=== PATIENT | female | born 2000 | race Caucasian/White ===

== ENCOUNTER 2020-12-15 16:33 | Emergency (ER) | payer OTHER ==
[2020-12-15 16:41] VITALS: BP 135/80; PULSE 71; RESP 18; TEMP 97.8
--- NOTE | 2020-12-15 17:08 | ED ---
Anxiety HPI - General Chief Complaint: Anxiety Stated Complaint: Panic Attacks Time Seen by Provider: 12/15/20 16:46 Source: patient Mode of arrival: ambulatory - History of Present Illness Initial Comments: Patient is a 20-year-old female presenting to the emergency Department with complaints of increased anxiety over the past week. She states she's had a history of anxiety over the past couple years but it's been getting worse over the past month. She states she's been getting almost daily panic attacks, not sleeping well, losing weight and not eating well. She states she just recently get set up with a primary care physician and is seeing a GI doctor next week in regards to her abdominal pain. She denies any suicidal or homicidal thoughts. She states she is starting a new job at Thursday and was really like to get some sleep. She states she has a follow-up appointment with her primary care physician in 2 weeks and they will address the anxiety. She also made an appointment with a counselor to address her anxiety. She currently takes Pepcid and Zofran occasionally for nausea. She denies any smoking, no alcohol or drug use. She denies being . She is not sexually active. She denies any chest pain or shortness of breath today. She denies any recent fevers or chills. She has no further complaints. Signs are stable upon arrival. - Related Data Home Medications: Previous Rx's Medication Instructions Recorded ALPRAZolam [Xanax] 0.25 mg PO BID PRN #12 tab 12/15/20 Allergies/Adverse Reactions: Allergies Allergy/AdvReac Type Severity Reaction Status Date / Time cefazolin Allergy Rash/Hives Verified 12/15/20 16:42 sulfamethoxazole Allergy Rash/Hives Verified 12/15/20 16:42 [From Bactrim] trimethoprim [From Bactrim] Allergy Rash/Hives Verified 12/15/20 16:42 hydromorphone [From Dilaudid] AdvReac Nausea & Verified 12/15/20 16:42 Vomiting Review of Systems ROS Statement: Those systems with pertinent positive or pertinent negative responses have been documented in the HPI. ROS Other: All systems not noted in ROS Statement are negative. Past Medical History Past Medical History: No Reported History History of Any Multi-Drug Resistant Organisms: None Reported Additional Past Surgical History / Comment(s): skin grafts lower legs, Past Psychological History: No Psychological Hx Reported Smoking Status: Current every day smoker Past Alcohol Use History: Rare Past Drug Use History: Marijuana General Exam - General Exam Comments Initial Comments: GENERAL: Patient is well-developed and well-nourished. Patient is nontoxic and in no acute distress. HEAD: Atraumatic, normocephalic. EYES: Pupils equal round and reactive to light, extraocular movements intact, sclera anicteric, conjunctiva are normal. Eyelids were unremarkable. ENT: Nares patent, oropharynx clear without exudates. Moist mucous membranes. NECK: Normal range of motion, supple without lymphadenopathy or JVD. LUNGS: Unlabored respirations. Breath sounds clear to auscultation bilaterally and equal. No wheezes rales or rhonchi. HEART: Regular rate and rhythm without murmurs, rubs or gallops. ABDOMEN: Soft, nontender, normoactive bowel sounds. No guarding, no rebound. No masses appreciated. : Deferred MUSCULOSKELETAL: Normal extremities with adequate strength and normal range of motion, no pitting or edema. No clubbing or cyanosis. NEUROLOGICAL: Patient is alert and oriented x 3. Motor and sensory are also intact. Cranial nerves II through XII grossly intact. Symmetrical smile. Normal speech, normal gait. PSYCH: Normal mood, normal affect. SKIN: Warm, Dry, normal turgor, no rashes or lesions noted. Limitations: no limitations Course Vital Signs 12/15/20 16:37 Temperature 97.8 F Pulse Rate 71 Respiratory 18 Rate Blood Pressure 135/80 O2 Sat by Pulse 98 Oximetry Medical Decision Making - Medical Decision Making Patient is a 20-year-old female presenting with increasing anxiety over the past couple weeks. Her vital signs are stable, she has no chest pain or shortness of breath today. She recently was set up with a new primary care physician, she has an appointment with a counselor and a GI specialist this next few weeks. She starts a new job on Thursday not been sleeping. We discussed taking a low- dose Xanax at nighttime to help with her sleep. We'll give her a few tablets of this to go home with. She will follow-up with her primary care physician for further treatment of her anxiety. She is in agreement with this plan of care. Her grandmother is with her today and will drive her home. She agrees not to mix any other medications. She is stable for discharge. Return parameters were discussed with her and she verbalized understanding. Case discussed with Dr. Holloway. Disposition Clinical Impression: Anxiety Disposition: HOME SELF-CARE Condition: Stable Instructions (If sedation given, give patient instructions): Generalized Anxiety Disorder (ED) Additional Instructions: Please return to the Emergency Department if symptoms worsen or any other concerns. May take Xanax at nighttime to help with sleep. Please follow-up with your primary care physician as well as your counselor. Prescriptions: ALPRAZolam [Xanax] 0.25 mg PO BID PRN #12 tab PRN Reason: Anxiety Is patient prescribed a controlled substance at d/c from ED?: Yes When asked, does pt state using other controlled substances?: No If prescribed controlled substance>3 days was MAPS reviewed?: Prescribed <3 Days Referrals: Sweta Murphy NPC [Primary Care Provider] - 1-2 days Time of Disposition: 17:07
== END 2020-12-15 17:20 | disposition home or self-care (01) ==
LOC: EC 16:33
DX: F41.9 Anxiety disorder, unspecified (principal); F17.200 Nicotine dependence, unspecified, uncomplicated; Z88.1 Allergy status to other antibiotic agents; Z88.5 Allergy status to narcotic agent; Z88.2 Allergy status to sulfonamides
CPT/HCPCS: 99283

== ENCOUNTER 2021-01-15 08:51 | Day surgery (SDC) | payer OTHER ==
[2021-01-14 08:27] VITALS: BMI 33.6
[2021-01-15 09:23] VITALS: TEMP 98.7
[2021-01-15] MEDS ORDERED: LIDOCAINE 1% (10MG/ML) FOR IV START INTRADERMA ONE (09:34)
[2021-01-15] MEDS: LACTATED RINGERS 1,000 ML IV SCH ×2 (09:35→09:42)
[2021-01-15] MEDS ORDERED: LIDOCAINE 1% INJ 10MG/ML (20 ML MDV) ONE (09:43)
[2021-01-15] MEDS ORDERED: PROPOFOL 10 MG/ML 20 ML VIAL IV ONE (09:43)
--- NOTE | 2021-01-15 10:06 | P.PCN ---
Date of Procedure: 01/15/21 Description of Procedure: BRIEF HISTORY: Patient is a 20-year-old female presenting for esophagogastroduodenoscopy for evaluation of epigastric pain. She was seen in the GI clinic reporting symptoms of epigastric burning and pain with decreased appetite, nausea, vomiting and an episode of coffee-ground emesis. She was started on PPI therapy and reports improvement in her symptoms. PROCEDURE PERFORMED: Esophagogastroduodenoscopy with biopsy. PREOPERATIVE DIAGNOSIS: Epigastric abdominal pain, GERD, coffee-ground emesis. ESTIMATED BLOOD LOSS: Minimal. IV sedation per anesthesia. PROCEDURE: After informed consent was obtained, the patient was brought into the endoscopy unit. IV sedation was administered by Anesthesia under continuous monitoring. Initially the Olympus GIF-190 video endoscope was inserted into the mouth. Esophagus intubated without any difficulty. It was gradually advanced into the stomach and duodenum and carefully examined. The bulb and the second part of the duodenum appeared normal, with biopsies taken. The scope at this time was withdrawn to the stomach, adequately insufflated with air, and upon careful examination, mucosa of the antrum, body, cardia and the fundus appeared normal, except for mild punctate erythema in the antrum and body suggestive of mild gastritis biopsies taken. The scope was then withdrawn into the esophagus. The GE junction was located at 39 cm from the incisors, with lower esophageal biopsies. The esophagus appeared normal. There were no erosions or ulcerations seen and the patient tolerated the procedure well. IMPRESSION: 1. Mild gastritis. 2. Biopsies of the duodenum, antrum body and lower esophagus. RECOMMENDATIONS: The findings of this examination were discussed with the patient and her family. Okay to resume diet. Okay to resume medications. Continue PPI therapy. Await pathology from biopsies.
[2021-01-15 10:24] VITALS: BP 128/85; PULSE 56; RESP 16
== END 2021-01-15 10:39 | disposition home or self-care (01) ==
LOC: ORWHC2ENDO 08:51
PROVIDERS: ATTEND Internal Medicine
DX: K29.50 Unspecified chronic gastritis without bleeding (principal); K20.0 Eosinophilic esophagitis; K21.9 Gastro-esophageal reflux disease without esophagitis; Z88.6 Allergy status to analgesic agent; Z88.5 Allergy status to narcotic agent; Z88.2 Allergy status to sulfonamides; Z79.899 Other long term (current) drug therapy; Z98.890 Other specified postprocedural states; F41.9 Anxiety disorder, unspecified; F32.9 Major depressive disorder, single episode, unspecified; E66.9 Obesity, unspecified; Z68.33 Body mass index [BMI] 33.0-33.9, adult
CPT/HCPCS: 81025; 88305; 43239; J2001; J2704

== ENCOUNTER 2021-04-06 09:00 | Emergency (ER) | payer BC, OTHER ==
[2021-04-06 09:11] VITALS: RESP 18; TEMP 98.6
[2021-04-06] MEDS ORDERED: ONDANSETRON 4 MG/2 ML VIAL IVP STA (09:36)
[2021-04-06] MEDS ORDERED: SODIUM CHLORIDE 0.9% 1,000 ML IV STA ×2 (09:36→10:42)
[2021-04-06 10:06] LABS: Appearance,Urine Cloudy (Clear); Bilirubin,Urine Negative (Negative); Blood,Urine Negative (Negative); Color,Urine Yellow; Glucose,Urine (UA) Negative (Negative); Ketones,Urine 4+ (Negative); Leukocyte Esterase,Urine Small (Negative); Mucus,Urine Many /hpf; Nitrite,Urine Negative (Negative); PH, Urine 6.5 (5.0-8.0); Protein,Urine 1+ (Negative); RBC,Urine 3 /hpf (0-5); Specific Gravity,Urine 1.032 (1.001-1.035); Squamous Epithelial Cell,Urine 58 /hpf (0-4); Urobilinogen,Urine <2.0 mg/dL (<2.0); WBC,Urine 20 /hpf (0-5)
[2021-04-06 10:08] LABS: Basophils % (A) 0 %; Eosinophils # (A) 0.1 k/uL (0-0.7); Eosinophils % (A) 1 %; HGB 13.9 gm/dL (11.4-16.0); Lymphocytes # (A) 0.9 k/uL (1.0-4.8); Lymphocytes % (A) 7 %; MCHC 33.2 g/dL (31.0-37.0); MCV 90.4 fL (80.0-100.0); Mean Platelet Volume 8.2; Monocytes # (A) 0.2 k/uL (0-1.0); Monocytes % (A) 2 %; Neutrophils # (A) 11.6 k/uL (1.3-7.7); Neutrophils % (A) 90 %; Platelet Count 414 k/uL (150-450); RBC 4.64 m/uL (3.80-5.40); WBC 12.9 k/uL (3.8-10.6)
[2021-04-06 10:17] LABS: ALT 28 U/L (4-34); AST 35 U/L (14-36); African American GFR (CKD) >90 (>60 ml/min/1.73 sqM); Albumin 4.5 g/dL (3.5-5.0); Alkaline Phosphatase 76 U/L (38-126); Anion Gap 11 mmol/L; Blood Urea Nitrogen 10 mg/dL (7-17); Calcium 9.7 mg/dL (8.4-10.2); Carbon Dioxide 23 mmol/L (22-30); Chloride 106 mmol/L (98-107); Glucose 115 mg/dL (74-99); Non-African American GFR(CKD) >90 (>60 ml/min/1.73 sqM); Potassium 3.8 mmol/L (3.5-5.1); Sodium 140 mmol/L (137-145); Total Bilirubin 0.7 mg/dL (0.2-1.3); Total Protein 7.6 g/dL (6.3-8.2)
[2021-04-06 10:33] LABS: HCG,Quantitative Serum 1568.9 mIU/mL
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
[2021-04-06] MEDS ORDERED: METOCLOPRAMIDE 5 MG/ML 2 ML VIAL IVP STA (11:41)
[2021-04-06 12:30] VITALS: BP 131/83; PULSE 73
== END 2021-04-06 12:25 | disposition home or self-care (01) ==
LOC: EC 09:00
DX: O21.8 Other vomiting complicating pregnancy (principal); O99.283 Endocrine, nutritional and metabolic diseases complicating pregnancy, third trimester; E86.0 Dehydration; K21.9 Gastro-esophageal reflux disease without esophagitis; F41.9 Anxiety disorder, unspecified; F12.90 Cannabis use, unspecified, uncomplicated; Z3A.01 Less than 8 weeks gestation of pregnancy; Z88.1 Allergy status to other antibiotic agents; Z88.2 Allergy status to sulfonamides; Z88.5 Allergy status to narcotic agent; Z87.891 Personal history of nicotine dependence
CPT/HCPCS: 99284; 96374; 96375; 96361 ×2; 36415; 80053; 85025; 81001; 84702; 87086; J2765; J2405

== ENCOUNTER 2022-01-25 05:24 | Inpatient (IN) | payer BC, OTHER ==
[2022-01-25] MEDS ORDERED: LIDOCAINE 0.5% (PF) 5 MG/ML (50 ML SDV) SQ PRN (06:26)
[2022-01-25] MEDS ORDERED: CARBOPROST TROMETHAMINE 250 MCG/ML 1 ML AMP IM PRN (06:26)
[2022-01-25] MEDS ORDERED: METHYLERGONOVINE 0.2 MG/ML 1 ML AMP IM PRN (06:26)
[2022-01-25] MEDS ORDERED: TERBUTALINE 1 MG/ML VIAL SQ PRN (06:26)
[2022-01-25] MEDS ORDERED: OXYTOCIN 10 UNIT/ML 1 ML VIAL IM PRN (06:26)
[2022-01-25] MEDS ORDERED: OXYTOCIN 30 UNITS/500 ML NS 30 UNIT in SALINE 1 500ML.BAG IV SCH ×2 (06:30→15:15)
[2022-01-25 06:36] LABS: Basophils % (A) 0 %; Eosinophils # (A) 0.1 k/uL (0-0.7); Eosinophils % (A) 1 %; HGB 10.8 gm/dL (11.4-16.0); Hypochromasia Slight; Lymphocytes # (A) 2.6 k/uL (1.0-4.8); Lymphocytes % (A) 23 %; MCH 26.3 pg (25.0-35.0); MCHC 31.6 g/dL (31.0-37.0); MCV 83.3 fL (80.0-100.0); Mean Platelet Volume 8.6; Monocytes # (A) 0.7 k/uL (0-1.0); Monocytes % (A) 6 %; Neutrophils % (A) 69 %; Platelet Count 334 k/uL (150-450); RBC 4.09 m/uL (3.80-5.40); RDW 14.1 % (11.5-15.5); WBC 11.6 k/uL (3.8-10.6)
[2022-01-25] MEDS: LACTATED RINGERS 1,000 ML IV SCH ×3 (06:36→11:10)
[2022-01-25] MEDS: BUTORPHANOL 1 MG/ML 1 ML VIAL IV PRN ×2 (07:37→14:49)
[2022-01-25] MEDS ORDERED: ROPIVACAINE 5MG/ML 20ML VIAL ONE (07:49)
[2022-01-25] MEDS ORDERED: fentaNYL (PF) 50 MCG/ML 5 ML AMP ONE (07:49)
[2022-01-25] MEDS ORDERED: SODIUM CHLORIDE 0.9% 100 ML BAG ONE (07:49)
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
--- NOTE | 2022-01-25 15:09 | P.PROBDLV ---
Vaginal Delivery Note - . Vaginal Delivery Note: Normal vaginal delivery viable male infant Apgars 8 and 8 delivery time is 1438 hrs. Please see dictated H&P for intimate details of this patient's admission. In summary this is a 21-year-old 2 para 0 female estimated gestational age 39-5/7 weeks who presented to labor and delivery with spontaneous rupture membranes in early labor. Patient has Pitocin augmentation of labor. She does receive an epidural for pain control. Patient's labor progresses normally and she gets to complete. Patient pushes the head to the perineum after approximately 1 hour and 30 minutes. At this time patient is exhausted and she does have some perineal constriction therefore I infiltrate the posterior perineum 1% lidocaine and a midline episiotomy is made. We then with 1 push have controlled delivery of the infant's head over the perineum and presentation is straight occiput anterior. Mouth and nares are bulb suctioned. There is no evidence of a nuchal cord. With maternal effort she pushes and is unable to dislodge the anterior shoulder. This time the patient is encouraged to breathe and she's placed in Lázaro maneuver. At this time she pushes again after several efforts is able to dislodge the anterior shoulder and then the posterior shoulder and rest of this 's body. This is considered a mild to moderate shoulder dystocia based on the need for Lázaro maneuver and prolonged delivery of the shoulders. No other maneuvers are required for delivery. has spontaneous respiration and good cry and grossly appears normal. There are no defects. After delivery of the is laid on the mother's abdomen. The umbilical cord is doubly clamped and cut after some pulsating than the infant is taken to the warmer. Placenta is then spontaneously delivered intact. Inspection of perineum shows second-degree laceration was repaired with 3-0 Vicryl usual fashion. Excellent reapproximation is noted. All counts correct 3. This may blood loss 1 50 mL. Delivery is uncomplicated with the exception of mild to moderate shoulder dystocia.
[2022-01-25] MEDS ORDERED: SIMETHICONE 80 MG CHEWABLE PO PRN (15:11)
[2022-01-25] MEDS ORDERED: HYDROCORTISONE 2.5% RECTAL CREAM 30 GM TUBE RECTAL PRN (15:11)
[2022-01-25] MEDS ORDERED: ZOLPIDEM 5 MG TAB PO PRN (15:11)
[2022-01-25] MEDS ORDERED: LANOLIN CREAM 5 GM TUBE TOPICAL PRN (15:11)
[2022-01-25] MEDS ORDERED: bisacodyL 10 MG SUPP RECTAL PRN (15:11)
[2022-01-25] MEDS ORDERED: diphenhydrAMINE 25 MG CAP PO PRN (15:11)
[2022-01-25] MEDS ORDERED: diphenhydrAMINE 50 MG/ML 1 ML VIAL IVP PRN (15:11)
[2022-01-25] MEDS ORDERED: BENZOCAINE/MENTHOL SPRAY 1 GM/SPRAY AEROSOL TOPICAL PRN (15:11)
[2022-01-25] MEDS: IBUPROFEN 600 MG TAB PO PRN ×2 (16:06→23:46)
[2022-01-25] MEDS: ACETAMINOPHEN TAB 325 MG TAB PO PRN (19:51)
[2022-01-25] MEDS: SENNOSIDES-DOCUSATE SODIUM 1 EACH TAB PO SCH (19:51)
[2022-01-26] MEDS: ACETAMINOPHEN TAB 325 MG TAB PO PRN ×2 (04:09→19:45)
--- NOTE | 2022-01-26 06:37 | P.PNOBGVD ---
Subjective - Subjective Patient reports: Reports appetite normal, Reports voiding normally, Reports pain well controlled, Reports ambulating normally : doing well, in NICU Objective - Latest Vital Signs Latest vital signs: Vital Signs Temp Pulse Resp BP Pulse Ox 01/26/22 00:09 97.8 F 79 17 152/80 99 01/25/22 19:58 98.5 F 82 17 141/81 96 01/25/22 17:48 97.1 F L 85 18 123/63 01/25/22 16:29 98.1 F 87 17 133/64 01/25/22 15:59 76 16 127/60 01/25/22 15:44 79 16 124/66 01/25/22 15:29 93 16 123/71 01/25/22 15:14 83 16 123/69 01/25/22 14:59 98.5 F 90 16 120/83 01/25/22 06:48 97.6 F 76 16 141/90 98 Intake and Output 01/25/22 01/25/22 01/26/22 14:59 22:59 06:59 Intake Total 2816.267 567 Output Total 500 235 Balance 2316.267 332 Intake: IV 2800 400 Invasive Line 1 400 Intake, IV Titration 16.267 167 Amount Oxytocin 30 Units/500 ml 16.267 167 Ns 30 unit In Saline 1 500ml.bag @ Per Protocol IV .Q0M [facility] Rx#:[id number] Output: Urine 350 Estimated Blood Loss 150 Output, Quantitative 235 Blood Loss Other: # Voids 1 1 - Exam Lungs: bilateral: normal Chest: Normal S1, Normal S2 Extremities: Present: normal Abdomen: Present: normal appearance, soft Uterus: Present: normal, firm - Labs Labs: Abnormal Lab Results - Last 24 Hours (Table) 01/25/22 Range/Units 06:05 WBC 11.6 H (3.8-10.6) k/uL Hgb 10.8 L (11.4-16.0) gm/dL Neutrophils # 8.0 H (1.3-7.7) k/uL Assessment and Plan Assessment: day #1. Patient is resting without new complaints however she did have a couple mild blood pressure elevations. For this reason, I did draw preeclampsia blood work which is pending with her morning CBC. Patient's lochia was normal on her uterus is firm nontender. Patient's baby did go to special care for some respiratory issues and x-ray did show clavicle fracture however no other concerns. I explained to her that given all this most likely she will need to have a with her next delivery to avoid more serious injury. Plan today is to continue routine care, check CBC and preeclampsia labs, encourage ambulation. (1) 39 weeks gestation of Current Visit: Yes Status: Acute Code(s): Z3A.39 - 39 WEEKS GESTATION OF SNOMED Code(s): 05114653 (2) Spontaneous rupture of amniotic membranes Current Visit: Yes Status: Acute Code(s): KGM9620 - SNOMED Code(s): 16 [id number]
[2022-01-26 06:59] LABS: Albumin 2.7 g/dL (3.5-5.0); Bilirubin, Delta 0.1 mg/dL (0.0-0.2); Bilirubin,Unconjugated 0.2 mg/dL (0.0-1.1); Total Bilirubin 0.3 mg/dL (0.2-1.3); Total Protein 5.1 g/dL (6.3-8.2); Uric Acid 5.2 mg/dL (3.7-7.4)
[2022-01-26 08:24] LABS: Basophils # (A) 0.1 k/uL (0-0.2); Basophils % (A) 0 %; Eosinophils # (A) 0.1 k/uL (0-0.7); Eosinophils % (A) 1 %; HCT 31.8 % (34.0-46.0); Hypochromasia Moderate; Lymphocytes # (A) 3.5 k/uL (1.0-4.8); Lymphocytes % (A) 20 %; MCH 26.7 pg (25.0-35.0); MCHC 31.4 g/dL (31.0-37.0); Mean Platelet Volume 10.4; Monocytes # (A) 1.1 k/uL (0-1.0); Monocytes % (A) 6 %; Neutrophils # (A) 12.8 k/uL (1.3-7.7); Neutrophils % (A) 72 %; Platelet Count 297 k/uL (150-450); RBC 3.74 m/uL (3.80-5.40); RDW 14.3 % (11.5-15.5); WBC 17.7 k/uL (3.8-10.6)
[2022-01-26] MEDS: IBUPROFEN 600 MG TAB PO PRN ×2 (08:33→15:47)
[2022-01-26] MEDS: SENNOSIDES-DOCUSATE SODIUM 1 EACH TAB PO SCH ×2 (08:34→20:44)
[2022-01-27] MEDS: IBUPROFEN 600 MG TAB PO PRN ×3 (00:07→13:09)
[2022-01-27] MEDS: ACETAMINOPHEN TAB 325 MG TAB PO PRN ×2 (05:49→18:20)
--- NOTE | 2022-01-27 07:19 | P.DS ---
Providers Date of admission: 01/25/22 05:44 Expected date of discharge: 01/27/22 Attending physician: Radha Moncada Primary care physician: Stated None - Discharge Diagnosis(es) (1) Normal vaginal delivery Current Visit: Yes Status: Acute (2) Shoulder dystocia during labor and delivery, delivered Current Visit: Yes Status: Acute Hospital Course: Patient presented in active labor. She underwent a normal vaginal delivery with shoulder dystocia after pushing for an hour and a half. The baby does have a broken clavicle and is being watched in the nursery for breathing issues. Patient is doing well today. Denies nausea, vomiting, chest pain, shortness of breath or calf pain. Her lochia is decreasing. Patient will be discharged home day #2 in stable condition to follow-up with me in 6 weeks. Plan - Discharge Summary New Discharge Prescriptions: No Action busPIRone HCl [Buspar] 5 mg PO TID Ondansetron [Zofran] 4 mg PO Q8HR PRN PRN Reason: Nausea Famotidine [Pepcid] 20 mg PO DAILY PRN PRN Reason: GERD Pantoprazole Sodium [Protonix] 40 mg PO DAILY Ondansetron Odt [Zofran Odt] 4 mg PO Q8HR PRN #20 tab PRN Reason: Nausea Discharge Medication List Famotidine [Pepcid] 20 mg PO DAILY PRN 01/14/21 [History] Ondansetron [Zofran] 4 mg PO Q8HR PRN 01/14/21 [History] Pantoprazole Sodium [Protonix] 40 mg PO DAILY 01/14/21 [History] busPIRone HCl [Buspar] 5 mg PO TID 01/14/21 [History] Ondansetron Odt [Zofran Odt] 4 mg PO Q8HR PRN #20 tab 04/06/21 [Rx] Follow up Appointment(s)/Referral(s): Radha Moncada DO [Doctor of Osteopathic Medicine] - 6 Weeks Discharge Disposition: HOME SELF-CARE
[2022-01-27] MEDS: SENNOSIDES-DOCUSATE SODIUM 1 EACH TAB PO SCH (08:32)
[2022-01-27 09:04] VITALS: RESP 16
[2022-01-27 16:07] VITALS: BP 128/84; PULSE 92; TEMP 98
== END 2022-01-27 18:55 | disposition home or self-care (01) | DRG 807 ==
LOC: FBPOP 05:24 → 4FBP 05:44
PROVIDERS: ADMIT Obstetrics & Gynecology; ATTEND Obstetrics & Gynecology
PROC: 10E0XZZ Delivery of Products of Conception, External Approach (ICD-10-PCS; principal; 2022-01-25)
PROC: 3E033VJ Introduction of Other Hormone into Peripheral Vein, Percutaneous Approach (ICD-10-PCS; 2022-01-25)
PROC: 4A0HXCZ Measurement of Products of Conception, Cardiac Rate, External Approach (ICD-10-PCS; 2022-01-25)
PROC: 0W8NXZZ Division of Female Perineum, External Approach (ICD-10-PCS; 2022-01-25)
PROC: 10S0XZZ Reposition Products of Conception, External Approach (ICD-10-PCS; 2022-01-25)
DX: O42.92 Full-term premature rupture of membranes, unspecified as to length of time between rupture and onset of labor (principal); Z37.0 Single live birth; F17.290 Nicotine dependence, other tobacco product, uncomplicated; K21.9 Gastro-esophageal reflux disease without esophagitis; O99.62 Diseases of the digestive system complicating childbirth; F41.9 Anxiety disorder, unspecified; O66.0 Obstructed labor due to shoulder dystocia; O90.89 Other complications of the puerperium, not elsewhere classified; R03.0 Elevated blood-pressure reading, without diagnosis of hypertension; O99.334 Smoking (tobacco) complicating childbirth; O99.344 Other mental disorders complicating childbirth; Z88.1 Allergy status to other antibiotic agents; Z88.5 Allergy status to narcotic agent; Z88.2 Allergy status to sulfonamides; Z88.8 Allergy status to other drugs, medicaments and biological substances; Z3A.39 39 weeks gestation of pregnancy; Z79.899 Other long term (current) drug therapy
CPT/HCPCS: 59025; 80076; 84550; 85025; 86850; 86900; 86901; 99213